=== PATIENT | female | born 1965 | race Caucasian/White ===

== ENCOUNTER 2017-10-31 12:18 | Emergency (ER) | payer BC | END 2017-10-31 13:15 | disposition left against medical advice (07) | LOC: UCEAST 12:18 | DX: M54.2 Cervicalgia (principal); Z53.21 Procedure and treatment not carried out due to patient leaving prior to being seen by health care provider ==

== ENCOUNTER 2017-10-31 12:36 | Emergency (ER) | payer BC ==
[2017-10-31 14:37] VITALS: BP 152/96
--- NOTE | 2017-10-31 14:45 | UC ---
Neck Pain HPI - HPI Summary HPI Summary: 52 year old female presents with neck pain after sneezing. - History of Current Complaint Chief Complaint: UCBackPain Stated Complaint: NECK PAIN Time Seen by Provider: 10/31/17 14:40 Hx Obtained From: Patient Onset/Duration Of Injury/Symptoms: Hours Mechanism Of Injury: Sharp Trauma Timing: Constant Onset/Duration: Sudden Onset Severity: Moderate Pain Scale Used: 0-10 Numeric - 8 Character: Sharp Aggravating Factors: Nothing Alleviating Factors: Nothing Associated Signs & Symptoms: Positive: Negative - Risk Factors Meningitis Risk Factors: Negative - Allergies/Home Medications Allergies/Adverse Reactions: Allergies Allergy/AdvReac Type Severity Reaction Status Date / Time Ampicillin Allergy Mild Rash Verified 10/31/17 14:37 Home Medications: Home Medications Cyclobenzaprine TAB* [Flexeril 10 MG TAB*] 10 mg PO DAILY 10/31/17 [History Confirmed 10/31/17] PMH/Surg Hx/FS Hx/Imm Hx Previously Healthy: Yes - Surgical History Surgical History: Yes Surgery Procedure, Year, and Place: APPY, HYSTERECTOMY, RIGHT INGINAL HERNIA REPAIR W/ [facility]. - Social History Alcohol Use: Rare Substance Use Type: None Smoking Status (MU): Never Smoked Tobacco Review Of Systems Constitutional: Positive: Negative Skin: Positive: Negative Eyes: Positive: Negative ENT: Positive: Negative Respiratory: Positive: Negative Cardiovascular: Positive: Negative Gastrointestinal: Positive: Negative Genitourinary: Positive: Negative Musculoskeletal: Positive: Other: - right sided neck pain Neurological: Positive: Negative All Other Systems Reviewed And Are Negative: Yes Physical Exam Triage Information Reviewed: Yes Vital Signs: Initial Vital Signs Temp 36.6 C 10/31/17 14:33 Pulse 73 10/31/17 14:33 Resp 16 10/31/17 14:33 BP 152/96 10/31/17 14:33 Pulse Ox 100 10/31/17 14:33 Vital Signs Reviewed: Yes Eye Exam: Normal ENT Exam: Normal Dental Exam: Normal Neck exam: Normal Neck: Positive: 1 Respiratory Exam: Normal Cardiovascular Exam: Normal Abdominal Exam: Normal Musculoskeletal: Positive: Other: - rifght sided neck pain Neurological Exam: Normal Psychological Exam: Normal Skin Exam: Normal Neck Pain Course/Dx - Differential Dx/Diagnosis Provider Diagnoses: right sided neck spasm/pain Discharge - Discharge Plan Condition: Stable Disposition: HOME Prescriptions: Meloxicam [Mobic] 7.5 mg PO BID PC #30 tab Methocarbamol TAB* [Robaxin 500 MG TAB*] 500 mg PO TID PRN #30 tab PRN Reason: Spasms - Muscle Patient Education Materials: Acute Neck Pain (ED) Referrals: Rishi Naik MD [Primary Care Provider] - [facility] [place] [Medical Doctor] -
== END 2017-10-31 14:56 | disposition home or self-care (01) ==
LOC: UCCORT 12:36
DX: M62.838 Other muscle spasm (principal); M54.2 Cervicalgia; Z88.3 Allergy status to other anti-infective agents
CPT/HCPCS: 99212; G0463